=== PATIENT | female | born 1990 | race Caucasian/White ===

== ENCOUNTER 2016-04-03 14:21 | Emergency (ER) | payer OTHER ==
[2016-04-03 14:30] VITALS: BMI 20.5
[2016-04-03] MEDS ORDERED: MORPHINE 4 MG/ML INJECTION IV ONE (14:41)
[2016-04-03] MEDS ORDERED: ONDANSETRON HCL 4 MG/2 ML VIAL IV ONE (14:41)
[2016-04-03] MEDS ORDERED: NS 2,000 ML IV ONE (14:41)
--- NOTE | 2016-04-03 14:44 | EDPRACDOC ---
- General Information Chief Complaint: Flu-Like Symptoms Stated Complaint: DX WITH FLU - STATES FEELS WORSE Time Seen by Provider: 04/03/16 14:36 Mode Of Arrival: Car Home Medications: Home Medications Amox Tr/Potassium Clavulanate [Augmentin Tablet (875mg/125mg)] 1 tab PO BID #20 tablet 04/03/16 Prednisone [Deltasone] 40 mg PO DAILY #10 tablet 04/03/16 Promethazine Dextromethorphan [Phenergan DM] 5 ml PO Q4H PRN #120 ml 04/03/16 Allergies/Adverse Reactions: Allergies Allergy/AdvReac Type Severity Reaction Status Date / Time No Known Allergies Allergy Verified 04/03/16 14:26 - History of Present Illness Onset: Thursday HPI: Pt c/o R sided sore throat, congestion, n/v/d, fever, body aches x 2 days. Pt states family had flu and she went to urgent and was dx with flu. States 6 episodes vomiting in 24 hours, and 4-5 episodes of diarrhea. Shortness of Breath: None Relevant History of: Reports: Influenza A exposure Cough: Reports: Non-productive Rhinorrhea: Reports: Clear Fever Severity/Quality: Reports: greater than 100.5 F Ear Symptoms: Reports: Earache Associated Signs & Symptoms: Reports: Cough, Earache, Fever, Nasal Symptoms, Sore Throat, Nausea, Vomiting, Diarrhea, Myalgia Oral Intake: Decreased Urinary Output: Decreased ED Past Medical History - History Reviewed Yes Nurses notes reviewed and agree except as marked - Patient Medical History Systemic History: Denies: Cancer Surgical History: Reports: Tonsillectomy/Adnoidectomy. Denies: Hysterectomy - Social Medical History Smoking Status: Heavy tobacco smoker (5 or more cigarettes/day or daily pipe/ cigar) ETOH: None Substance Abuse: None EDM Review of Systems - Review of Systems Constitutional: Chills, Fever Ears: Pain Throat: Pain, Swelling Nose: Congestion Mouth: No Symptoms Reported. negative: Pain, Drooling Respiratory: Cough Cardiovascular: No Symptoms Reported. negative: Chest Pain, Palpitations, Syncope, Edema, Orthopnea, PND, Skin Mottling, Cyanosis Gastrointestinal: Diarrhea, Nausea, Vomiting Genitourinary: No Symptoms Reported. negative: Dysuria, Hematuria, Frequency, Discharge, Bleeding, Testicular Pain, Neurological: No Symptoms Reported. negative: Headache, Dizziness, Seizure, Numbness, Weakness, Speech Difficulty, Gait Difficulty Musculoskeletal: Other (bodyache) Integumentary: No Symptoms Reported. negative: Itching, Rash, Bruising, Wound Allergic/Immunologic: No Symptoms Reported. negative: Hives, Itching Hematologic: No Symptoms Reported. negative: Lymphadenopathy, Easy Bruising, Easy Bleeding Psychiatric: No Symptoms Reported. negative: Anxiety, Depression, Hallucinations, Insomnia, Suicidal - Physical Exam Constitutional: Alert (Awake), Distress (mild) Oriented to: Time, Person, Place Last recorded Vital Signs: Last Vital Signs Temp 99.2 F 04/03/16 14:26 Pulse 123 H 04/03/16 14:26 Resp 18 04/03/16 14:26 BP 124/82 04/03/16 14:26 Pulse Ox 97 04/03/16 14:26 Oxygen Pulse Oxygen Saturation 97 O2 Device Oxygen Flow Rate Fraction of Inspired Oxygen ( FIO2) - HEENT Head: Normal ( normocephalic) Eye Exam: Normal (PERRL, EOMI, Sclera white) Oropharynx: Exudate, Red, Tonsillar Hypertrophy (R side none on L) Tympanic Membrane: Normal ENT EAC: Normal Nose: Congestion Neck: Lymphadenopathy (R anterior cervical adenopathy) - Respiratory/Cardiovascular Respiratory: Normal - CTA (BBS clear to auscultation without adventitious sounds ) Cardiovascular: Tachycardia - GI Auscultation: Increased Palpation: Normal (Soft,No rebound or guarding, non distended) Tenderness: Non tender - Musculoskeletal Back: Normal (Non-Tender) Extremities: Normal (Normal tone, Pulses 2+ No cyanosis or edema, FROM) - Integumentary Skin: Normal, Warm, Dry Lymphatics: Normal (no adenopathy) - Neurologic Memory Impaired: Normal Motor Function: Normal (Normal tone, Pulses 2+ No cyanosis or edema, FROM) Mood Description: Normal Perception: Normal - Differential Diagnosis Influenza A B, Peritonsillar Abscess, Peritonsillar Cellulitis, Streptococcal - Results 04/03/16 14:50 04/03/16 14:50 04/03/16 16:26 Laboratory Results - last 24 hr 04/03/16 04/03/16 04/03/16 14:50 14:50 15:03 WBC 13.0 H RBC 4.61 Hgb 13.9 Hct 39.7 MCV 86 MCH 30.1 MCHC 34.9 RDW 12.8 Plt Count 216 MPV 8.4 Neut % (Auto) 83.1 H Lymph % (Auto) 8.3 L [place] % (Auto) 8.3 Eos % (Auto) 0.1 Baso % (Auto) 0.2 Absolute Neuts (auto) 10.79 H Absolute Lymphs (auto) 1.04 Sodium 136 L Potassium 3.7 Chloride 96 L Carbon Dioxide 29 Anion Gap 15 BUN 5 L Creatinine 0.60 Estimated GFR (MDRD) > 60 Glucose 117 H Calculated Osmolality 260 L Calcium 8.8 Total Bilirubin 1.1 AST 22 ALT 25 Alkaline Phosphatase 61 Total Protein 7.6 Albumin 4.1 Urine Color Urine Clarity Urine pH Ur Specific [place] Urine Protein Urine Glucose (UA) Urine Ketones Urine Occult Blood Urine Nitrite Urine Bilirubin Urine Urobilinogen Ur Leukocyte Esterase Urine RBC Urine WBC Ur Epithelial Cells Urine Bacteria Urine Mucus Urine Test Neg 04/03/16 15:03 WBC RBC Hgb Hct MCV MCH MCHC RDW Plt Count MPV Neut % (Auto) Lymph % (Auto) [place] % (Auto) Eos % (Auto) Baso % (Auto) Absolute Neuts (auto) Absolute Lymphs (auto) Sodium Potassium Chloride Carbon Dioxide Anion Gap BUN Creatinine Estimated GFR (MDRD) Glucose Calculated Osmolality Calcium Total Bilirubin AST ALT Alkaline Phosphatase Total Protein Albumin Urine Color Yellow Urine Clarity Clear Urine pH 6.0 Ur Specific [place] 1.010 Urine Protein Neg Urine Glucose (UA) Neg Urine Ketones 1+ H Urine Occult Blood 1+ H Urine Nitrite Neg Urine Bilirubin Neg Urine Urobilinogen 2 H Ur Leukocyte Esterase Neg Urine RBC 0-2 Urine WBC 0-2 Ur Epithelial Cells 1+ Urine Bacteria 1+ H Urine Mucus Occ Urine Test - Diagnostic Imaging Other Image interpreted by: Radiologist CT neck: IMPRESSION: 1. Moderate prominence the lingual tonsils and right greater than left palatine tonsil without evidence for focal abscess. 2. Enlarged right lateral retropharyngeal lymph node compatible with inflammation. 3. Enlarged L2 level 3 nodes bilaterally are likely reactive. 4. Focal area of hypoattenuation within the left jugulodigastric lymph node may represent early suppuration of the node without a focal abscess. - Additional Information Discussed with jhonny Tanner to d/c home Decision Time to Discharge: 16:26 - Departure Disposition: Home Condition: Good Final Diagnosis: Nausea vomiting and diarrhea Pharyngitis Qualifiers: Pharyngitis/tonsillitis etiology: unspecified etiology Qualified Code(s): J02.9 - Acute pharyngitis, unspecified Instructions: Acute Nausea and Vomiting (ED), Strep Throat (ED) Education/Counseling Given To: Patient Education/Counseling Given Regarding: Diagnosis, Treatment, Follow Up Referrals: None,No Provider [Primary Care Provider] - One Week Juan Ragsdale MD [Staff Physician] - One Week Prescriptions: Amox Tr/Potassium Clavulanate [Augmentin Tablet (875mg/125mg)] 1 tab PO BID #20 tablet Prednisone [Deltasone] 40 mg PO DAILY #10 tablet Promethazine Dextromethorphan [Phenergan DM] 5 ml PO Q4H PRN #120 ml PRN Reason: Cough Additional Instructions: Drink sips of Gatorade every 2-3 minutes while awake. Do NOT drink large volumes of fluid at once. If you vomit, take the nausea-vomiting medicine prescribed, wait ~ 30 minutes, and restart the sipping process. Return to the Emergency Department if you think you are getting dehydrated, have persistent abdominal pain that is unrelenting, have worse or different symptoms, or any concerns.
[2016-04-03] MEDS ORDERED: Pharmacy Review for Metformin - IV Contrast Given SCH (15:00)
[2016-04-03 15:07] LABS: AUTOMATED BASOPHIL 0.2 % (0-2); AUTOMATED EOSINOPHIL 0.1 % (0-5); AUTOMATED LYMPH 8.3 % (17-44); AUTOMATED MONOCYTE 8.3 % (3-10); AUTOMATED NEUTROPHIL 83.1 % (45-76); MPV 8.4 fL (7.4-10.4)
[2016-04-03 15:17] LABS: RBC/URINE 0-2 (0-5); WBC/URINE 0-2 (0-5)
[2016-04-03 15:19] LABS: URINE OCCULT BLOOD 1+ (NEG/TRACE)
[2016-04-03 15:20] LABS: LEUKOCYTES/URINE NEG (NEGATIVE); NITRITE/URINE NEG (NEGATIVE)
[2016-04-03 15:20] LABS: BLOOD UREA NITROGEN 5 MG/DL (7-17); CALCIUM 8.8 MG/DL (8.4-10.2); CALCULATED OSMOLALITY 260 MOs/Kg (270-290); CHLORIDE 96 mEq/L (98-107); GLUCOSE 117 MG/DL (70-99); SODIUM LEVEL 136 mEq/L (137-146); TOTAL PROTEIN 7.6 G/DL (6.3-8.2)
--- NOTE | 2016-04-03 16:06 | DIRPT ---
CLINICAL DATA: Right peritonsillar swelling. Right-sided sore throat. EXAM: CT NECK WITH CONTRAST TECHNIQUE: Multidetector CT imaging of the neck was performed using the standard protocol following the bolus administration of intravenous contrast. CONTRAST: 100 mL Isovue 370. COMPARISON: None. FINDINGS: Pharynx and larynx: There is moderate prominence of the lingual tonsils and right greater than left palatine tonsils. No discrete abscess or peritonsillar abscess is present. Salivary glands: The submandibular and parotid glands are within normal limits bilaterally. Thyroid: Negative Lymph nodes: The right lateral retropharyngeal lymph node is enlarged, measuring 10 x 9 mm. A left level 2 lymph node demonstrates an area of low attenuation inferiorly and anteriorly, likely representing a suppurative node. Other mildly enlarged ovoid nodes are present, more homogeneous. Prominent right level 2 lymph nodes are also present, likely reactive. More mild prominence of level 3 nodes is evident. No pathologic nodes are present. Vascular: Negative Limited intracranial: Within normal limits Visualized orbits: Negative Mastoids and visualized paranasal sinuses: Clear Skeleton: Within normal limits Upper chest: Clear IMPRESSION: 1. Moderate prominence the lingual tonsils and right greater than left palatine tonsil without evidence for focal abscess. 2. Enlarged right lateral retropharyngeal lymph node compatible with inflammation. 3. Enlarged L2 level 3 nodes bilaterally are likely reactive. 4. Focal area of hypoattenuation within the left jugulodigastric lymph node may represent early suppuration of the node without a focal abscess. Electronically Signed By: Evert Dixon M.D. On: 04/03/2016 16:04
[2016-04-03] MEDS ORDERED: ACETAMINOPHEN 325 MG/TAB TABLET PO ONE (16:29)
[2016-04-03 16:42] VITALS: BP 120/71; PULSE 108; TEMP 99.6
== END 2016-04-03 16:45 | disposition home or self-care (01) ==
LOC: ED 14:21 → EDMC 16:45
DX: J02.9 Acute pharyngitis, unspecified (principal); R11.2 Nausea with vomiting, unspecified; R19.7 Diarrhea, unspecified
CPT/HCPCS: 36415; 70491; 80053; 81001; 81025; 85025; 87040; 96361; 96374; 96375; 99284; A9698; J2270; J2405; J3490